=== PATIENT | female | born 1985 | race Caucasian/White ===

== ENCOUNTER 2020-01-02 08:20 | Inpatient (IN) ==
[2020-01-02 11:46] LABS: Amphetamines+Metham, Urine Neg (Neg); Barbiturates, Urine Neg (Neg); Benzodiazepine, Urine Neg (Neg); Cocaine, Urine Neg (Neg); MDMA (Ecstacy), Urine Neg (Neg); Methadone, Urine Neg (Neg); Opiate, Urine Neg (Neg); Phencyclidine, Urine Neg (Neg)
[2020-01-02] MEDS ORDERED: OXYTOCIN 30 UNITS/500 ML BAG IV PRN ×2 (12:35)
[2020-01-02] MEDS: LACTATED RINGER'S 1,000 ML IV PRN ×3 (12:54→20:33)
[2020-01-02 13:03] LABS: Hematocrit (blood only) 29.5 % (37-47); Hemoglobin 9.9 g/dL (12.0-16.0); Mean Corpuscular Hemoglobin 27.1 pg (25-34); Mean Corpuscular Volume 80.8 fL (80-100); Mean Platelet Volume 9.8 fL (7.4-10.4); Platelet Count 188 K/uL (130-400); RDW Coefficient of Variation 14.6 % (11.5-14.5); RDW Standard Deviation 42.7 fL (36.4-46.3); Red Blood Count 3.65 M/uL (4.2-5.4); White Blood Count 10.66 K/uL (4.8-10.8)
[2020-01-02 13:07] LABS: Mean Corpuscular Hgb Conc 33.6 g/dL (32-36)
[2020-01-02] MEDS ORDERED: ePHEDrine sulfate 50 MG/ML AMP ONE (16:09)
[2020-01-02] MEDS ORDERED: BUPIVACAINE 0.25% 30 ML VIAL ONE ×2 (16:10→23:30)
[2020-01-02] MEDS ORDERED: fentaNYL 2MCG/ML ROPIV 1.25MG/ML 100 ML BAG EPI ONE (16:10)
[2020-01-02] MEDS ORDERED: fentaNYL citrate 100 MCG/2 ML VIAL ONE ×2 (16:10→23:30)
--- NOTE | 2020-01-02 16:11 | History & Physical Report ---
Date of Service January 02, 2020 Assessment & Plan (1) 41 weeks gestation of : Long discussion about her situation. Cannot run pitocin if cannot monitor baby or contractions. Discussed could stop and wait a couple of days and try again--discussed the risks associated with waiting. Discussed the need for positioning for contractions and that might make her very uncomfortable. Discussed placement of internal monitors so can know for sure about contractions and monitoring the baby directly from the baby. Could give epidural to help with comfort and positioning. Discussed that will not be able to get up and move around. Discussed if she did not want to do any of this, could move directly to primary c/s. She does not want c/s. OK with going ahead with epidural and then internal monitors. Fetus category one--150s with mod variability, accels to 160s, no decels. Admission and Anticipated Discharge Date Admission Date: January 02, 2020 History of Present Illness Chief Complaint: LATE ENTRY Primary Care Provider: NO PCP Patient is a 34yowf with iup at 41 1/7 weeks who presents to labor and delivery for induction. Patient had a urrutia placed last night. Was still in when she arrived at labor and delivery this am. Notes no vb/lof. +fm. Patient was evaluated by Dr. Toribio on admission and removed the bulb. She was 3/5/-2. Having a very difficult time monitoring this patient. Was started on pitocin for induction and not able to adequately monitor because of size. She is uncomfortable in any position where we are adequately able to monitor. She will not stay in one position. Pitocin is now off. Patient was a transfer of care at 20 weeks from [place]. Spent a month in [place] in the . Admitted to smoking MJ daily in the at that time and urine positive for MJ. Advised to d/c. Patient admits that she has yessica nued to smoke MJ. Patient has a hx of a probably dermoid cyst on her ovary that has been stable for some time. Baby had EFW of 68% on 12/20. Allergies Allergy/AdvReac Type Severity Reaction Status Date / Time No Known Allergies Allergy Verified 12/28/19 15:45 Home Medications Home Medications Medication Instructions Recorded Confirmed Type pediatric multivitamin no.28 1 tab PO DAILY 08/04/19 01/02/20 History fluticasone propionate 50 1 sprays INTNAS DAILY PRN 10/20/19 01/02/20 History mcg/actuation nasal spray,suspension Patient History Medical History (Updated 01/02/20 @ 16:21 by Maribeth Vila MD, FACOG) Anxiety Encounter for anatomic survey GERD (gastroesophageal reflux disease) Hx of ectopic left salpingectomy in 2018 Hx of varicella MRSA (methicillin resistant Staphylococcus aureus) 02/2019 MRSA positive in right leg "boil". Swab obtained 01/01/2020 - pending. 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 Results & Data ([facility]) Vital Signs (Past 12 Hours) Vital Signs Temp Pulse Resp BP 01/02/20 14:49 37.0 C 94 H 20 124/72 01/02/20 13:30 89 20 117/76 01/02/20 13:28 94 H 20 120/74 01/02/20 12:37 36.9 C 100 H 20 132/77 01/02/20 10:19 37.1 C 20 01/02/20 10:13 100 H 125/73 Code Status & VTE Plan VTE Prophylaxis Plan VTE Prophylaxis will be ordered: Yes Coding Level of Care Code None Diagnoses 41 weeks gestation of Z3A.41
--- NOTE | 2020-01-02 16:33 | Anesthesiology Consultation ---
Date of Service January 02, 2020 Assessment & Plan Chart Review Chart Review: Acceptable Risk for Surgery, Patient NOT seen in Pre Admission Testing and Acceptable Risk for Labor Epidural Consults Requested none ASA ASA3 Proposed Anesthesia Anesthesia Type: Labor Epidural and CSE Risk / Benefits Reviewed With: PT / POA / Parent / Guardian, Accepts Plan and Informed Consent Obtained Additional Comments: not covid tested History Height/Weight Height: 5 ft 3 in Weight: 125.645 kg Allergies Allergy/AdvReac Type Severity Reaction Status Date / Time No Known Allergies Allergy Verified 12/28/19 15:45 Medications Home Medications Medication Instructions Recorded Confirmed Last Taken pediatric multivitamin no.28 1 tab PO DAILY 08/04/19 01/02/20 01/01/20 fluticasone propionate 50 1 sprays INTNAS DAILY PRN 10/20/19 01/02/20 01/01/20 mcg/actuation nasal spray,suspension Active Medications Generic Name Dose Route Start Last Admin Trade Name Freq PRN Reason Stop Dose Admin Lactated Ringer's 1,000 mls @ 125 mls/hr 01/02/20 12:35 01/02/20 12:54 Lr IV 01/04/20 12:34 125 mls/hr .Q8H PRN Administration L&D Protocol Protocol Oxytocin 30 units in 500 mls @ 0 mls/hr 01/02/20 12:35 01/02/20 15:42 Pitocin IV 01/04/20 12:34 0 units/hr .Q0M PRN 0 mls/hr Labor Induction/Augmentation Titration Protocol 0 UNITS/HR NPO Date Last Intake of Fluids: 01/02/20 Time Last Intake of Fluids: 15:00 Date Last Intake of Solids: 01/02/20 Time Last Intake of Solids: 09:00 Past Medical History Medical History Anxiety Encounter for anatomic survey GERD (gastroesophageal reflux disease) Hx of ectopic left salpingectomy in 2019 Hx of varicella MRSA (methicillin resistant Staphylococcus aureus) 02/2019 MRSA positive in right leg "boil". Swab obtained 01/01/2020 - pending. Exercise / Class Metabolic Activity III < 4 Walking/Shop/Light housework Past Family History Family History Mother Cervical cancer COPD (chronic obstructive pulmonary disease) Father COPD (chronic obstructive pulmonary disease) Past Surgical History Surgical History History of salpingectomy left Past Anesthesia History No Hx of Anesthesia Complications and No Family Hx of Anesthesia Complications History of PONV No Hx of PONV and No Hx of Motion Sickness Social History Smoking Status: Never smoker Do You Dip or Chew Tobacco: No Hx Alcohol Use: No Hx Substance Use: Yes substance use type: marijuana Last Used Substance Other:: Smoked marijuana in last 2 weeks. Physical Exam Vital Signs Last Vital Signs Temp 37.0 C 01/02/20 14:49 Pulse 91 H 01/02/20 16:27 Resp 20 01/02/20 14:49 BP 115/72 01/02/20 16:18 Pulse Ox 100 01/02/20 16:27 Constitutional + morbidly obese ENMT Mouth: no dentition abnormality Thyromental Distance: < 3.5 Finger Breadths Mallampati Class: II Neck normal visual inspection and trachea midline; neck extension not limited Respiratory normal respiratory effort Auscultation: lungs clear to auscultation bilaterally Cardiovascular Rate/Rhythm: regular rate and regular rhythm Heart Sounds: no murmur Vessels: no carotid bruit Musculoskeletal Spine: lumbar spine normal to inspection; normal cervical ROM Neurologic moves all extremities Motor/Sensory: no sensory deficit Psychiatric Orientation: alert and oriented x 3 Testing Laboratory Results 01/02/20 12:45
[2020-01-02] MEDS ORDERED: NALBUPHINE HCL INJ 10 MG/ML AMP IV PRN (17:11)
[2020-01-02] MEDS ORDERED: PROMETHAZINE HCL 25 MG in SODIUM CHLORIDE 0.9% 50 ML IV PRN (17:11)
[2020-01-02] MEDS ORDERED: DiphenhydrAMINE HCL 50 MG/ML VIAL IV PRN (17:11)
[2020-01-02] MEDS ORDERED: ePHEDrine sulfate 50 MG/ML AMP IV PRN (17:11)
[2020-01-02] MEDS ORDERED: NALOXONE HCL 1 MG in SODIUM CHLORIDE 0.9% 1000ML 1,000 ML IV PRN (17:11)
[2020-01-02] MEDS ORDERED: fentaNYL 2MCG/ML ROPIV 1.25MG/ML 100 ML BAG EPI PRN (17:11)
[2020-01-02] MEDS ORDERED: NALOXONE HCL 0.4 MG/1 ML VIAL/CARP IV PRN (17:11)
[2020-01-02] MEDS ORDERED: ONDANSETRON INJ 2 MG/ML 2 ML VIAL IV PRN (17:11)
--- NOTE | 2020-01-02 18:09 | Obstetrical Progress Note ---
Date of Service January 02, 2020 Assessment & Plan (1) 41 weeks gestation of : epiduralized and internalized. Will restart pitocin. Fetus category one. Admission and Anticipated Discharge Date Admission Date: January 02, 2020 Subjective comfortable after epidural Review of Systems Review of Systems: All systems reviewed & are unremarkable except as noted in HPI & below Physical Exam Constitutional: WD/WN, vitals as above Psychiatric: A+Ox3, euthymic affect Genitourinary: cx--4/80/-2 arom--clear toco--rare efm--150s with mod variability, accels to 160s Results & Data ([facility]) Vital Signs (Past 12 Hours) Vital Signs Temp Pulse Resp BP Pulse Ox 01/02/20 18:04 120 H 99 01/02/20 17:59 106 H 100 01/02/20 17:54 91 H 120/66 98 01/02/20 17:49 93 H 98 01/02/20 17:44 88 100 01/02/20 17:39 100 H 99 01/02/20 17:36 89 18 123/59 L 01/02/20 17:34 112 H 100 01/02/20 17:31 94 H 18 134/71 01/02/20 17:29 102 H 100 01/02/20 17:26 100 H 18 128/68 01/02/20 17:24 92 H 99 01/02/20 17:21 99 H 18 122/66 01/02/20 17:19 89 98 01/02/20 17:15 115 H 18 120/59 L 01/02/20 17:14 114 H 100 01/02/20 17:13 109 H 18 123/60 01/02/20 17:11 100 H 120/65 01/02/20 17:09 98 H 18 132/58 L 100 01/02/20 17:07 105 H 129/66 01/02/20 17:05 94 H 18 131/62 01/02/20 17:04 104 H 99 01/02/20 17:03 101 H 18 126/63 01/02/20 17:01 96 H 128/67 01/02/20 16:59 91 H 16 130/76 99 01/02/20 16:54 101 H 100 01/02/20 16:49 119 H 99 01/02/20 16:44 113 H 98 01/02/20 16:39 93 H 100 01/02/20 16:34 94 H 100 01/02/20 16:27 91 H 100 01/02/20 16:22 90 99 01/02/20 16:18 91 H 18 115/72 01/02/20 16:17 91 H 99 01/02/20 16:12 91 H 98 01/02/20 16:07 98 H 99 01/02/20 14:49 37.0 C 94 H 20 124/72 01/02/20 13:30 89 20 117/76 01/02/20 13:28 94 H 20 120/74 01/02/20 12:37 36.9 C 100 H 20 132/77 01/02/20 10:19 37.1 C 20 01/02/20 10:13 100 H 125/73 PG Care Time/CCT Total # of Minutes Spent Total Time Spent with Patient: Total time spent is greater than 50% in coordination of care (as documented) at patient's floor/unit and/or counseling patient: Coding Level of Care Code None Diagnoses 41 weeks gestation of Z3A.41
[2020-01-02] MEDS: ACETAMINOPHEN 325 MG TAB PO PRN (21:24)
[2020-01-02] MEDS ORDERED: Nursing to Pharmacy Communication SCH (22:15)
--- NOTE | 2020-01-02 23:18 | Communication Note ---
Date of Service: January 02, 2020 At 2315,pt. epidural cath. was bolused w/ 12 ml 0.17% bupivacaine + 100 mcgs fentanyl; incremental aspiration and injection, neg. for blood or CSF; vital s igns stable
[2020-01-02] MEDS ORDERED: fentaNYL citrate 100 MCG/2 ML VIAL IV STA (23:35)
[2020-01-02] MEDS ORDERED: BUPIVACAINE 0.25% 30 ML VIAL INFIL SCH (23:45)
[2020-01-03] MEDS ORDERED: BUPIVACAINE 0.25% 30 ML VIAL INJ ONE
[2020-01-03] MEDS ORDERED: Nursing to Pharmacy Communication SCH (00:30)
--- NOTE | 2020-01-03 02:15 | Labor Progress Brief Note ---
Date of Service January 03, 2020 Subjective comfortable Assessment & Plan (1) 41 weeks gestation of : Will allow to labor down for one hour and then push. Fetus category two but very reassuring. Anticipate . Admission and Anticipated Discharge Date Admission Date: January 02, 2020 Physical Exam Constitutional: WD/WN, vitals as above Psychiatric: A+Ox3, euthymic affect Genitourinary: cx--c/c/0 toco--q3-4, pit at 21 efm--150s with mod variability, variables with some contractions. Results & Data ([facility]) Vital Signs (Past 12 Hours) Vital Signs Temp Pulse Resp BP Pulse Ox 01/03/20 02:09 87 98 01/03/20 02:04 86 99 01/03/20 01:59 81 97 01/03/20 01:54 82 97 01/03/20 01:49 84 98 01/03/20 01:44 84 97 01/03/20 01:39 86 98 01/03/20 01:34 97 H 99 01/03/20 01:32 90 110/56 L 01/03/20 01:29 99 H 98 01/03/20 01:24 94 H 100 01/03/20 01:19 83 97 01/03/20 01:17 82 97/54 L 01/03/20 01:14 81 97 01/03/20 01:11 36.7 C 01/03/20 01:09 97 H 99 01/03/20 01:04 83 97 01/03/20 01:01 86 108/51 L 01/03/20 00:59 88 97 01/03/20 00:54 81 98 01/03/20 00:49 83 98 01/03/20 00:47 82 103/52 L 01/03/20 00:44 84 98 01/03/20 00:39 85 97 01/03/20 00:34 87 97 01/03/20 00:32 83 102/54 L 01/03/20 00:29 87 98 01/03/20 00:24 91 H 98 01/03/20 00:19 85 97 01/03/20 00:15 91 H 96/51 L 01/03/20 00:14 92 H 99 01/03/20 00:12 90 97/52 L 01/03/20 00:09 86 92/55 L 97 01/03/20 00:06 91 H 95/54 L 01/03/20 00:04 87 96 01/03/20 00:03 86 91/55 L 01/03/20 00:00 93 H 98/59 L 01/02/20 23:59 90 98 01/02/20 23:57 87 96/53 L 01/02/20 23:54 88 101/58 L 97 01/02/20 23:51 86 98/56 L 01/02/20 23:49 96 H 98 01/02/20 23:48 90 102/59 L 01/02/20 23:45 92 H 102/55 L 01/02/20 23:44 90 97 01/02/20 23:42 93 H 98/57 L 01/02/20 23:39 87 99/58 L 97 01/02/20 23:36 91 H 97/56 L 01/02/20 23:34 86 97 01/02/20 23:33 90 96/54 L 01/02/20 23:30 86 99/55 L 01/02/20 23:29 87 98 01/02/20 23:28 86 95/55 L 01/02/20 23:24 91 H 105/60 98 01/02/20 23:21 88 104/56 L 01/02/20 23:19 97 H 99 01/02/20 23:15 90 113/58 L 01/02/20 23:14 89 99 01/02/20 23:10 86 113/60 01/02/20 23:09 87 98 01/02/20 23:04 92 H 98 01/02/20 23:00 37.2 C 18 01/02/20 22:59 93 H 98 01/02/20 22:55 96 H 112/60 01/02/20 22:54 101 H 99 01/02/20 22:49 85 98 01/02/20 22:44 91 H 99 01/02/20 22:40 81 110/57 L 01/02/20 22:39 84 98 01/02/20 22:34 85 98 01/02/20 22:29 86 99 01/02/20 22:25 84 112/60 01/02/20 22:24 90 99 01/02/20 22:19 85 98 01/02/20 22:14 83 98 01/02/20 22:10 89 111/57 L 01/02/20 22:09 88 98 01/02/20 22:04 81 98 01/02/20 21:59 87 99 01/02/20 21:56 81 111/55 L 01/02/20 21:54 82 98 01/02/20 21:49 89 99 01/02/20 21:44 87 98 01/02/20 21:42 82 97/50 L 01/02/20 21:39 85 98 01/02/20 21:34 95 H 100 01/02/20 21:29 87 98 01/02/20 21:24 88 121/72 98 01/02/20 21:19 87 98 01/02/20 21:15 36.8 C 18 01/02/20 21:14 95 H 99 01/02/20 21:09 89 99 01/02/20 21:04 88 98 01/02/20 20:59 87 99 01/02/20 20:54 82 119/58 L 98 01/02/20 20:49 90 99 01/02/20 20:44 82 99 01/02/20 20:41 85 125/63 01/02/20 20:39 101 H 98 01/02/20 20:34 100 H 98 01/02/20 20:29 85 98 01/02/20 20:24 83 115/56 L 98 01/02/20 20:19 82 97 01/02/20 20:14 81 97 01/02/20 20:09 85 113/58 L 98 01/02/20 20:04 84 98 01/02/20 19:59 83 98 01/02/20 19:54 82 112/56 L 99 01/02/20 19:49 81 99 01/02/20 19:44 80 99 01/02/20 19:39 87 111/57 L 98 01/02/20 19:34 82 99 01/02/20 19:29 85 99 01/02/20 19:24 83 120/63 99 01/02/20 19:19 84 100 01/02/20 19:18 86 94 01/02/20 19:14 93 H 100 01/02/20 19:09 83 119/61 99 01/02/20 19:04 94 H 98 01/02/20 19:00 36.8 C 18 01/02/20 18:59 88 98 01/02/20 18:55 83 115/64 01/02/20 18:54 81 99 01/02/20 18:49 82 99 01/02/20 18:44 87 99 01/02/20 18:39 84 118/59 L 98 01/02/20 18:37 86 119/58 L 01/02/20 18:34 86 98 01/02/20 18:29 85 99 01/02/20 18:24 94 H 99 01/02/20 18:19 85 99 01/02/20 18:14 95 H 99 01/02/20 18:09 96 H 124/63 100 01/02/20 18:04 120 H 99 01/02/20 17:59 106 H 100 01/02/20 17:54 91 H 120/66 98 01/02/20 17:49 93 H 98 01/02/20 17:44 88 100 01/02/20 17:39 100 H 99 01/02/20 17:36 89 18 123/59 L 01/02/20 17:34 112 H 100 01/02/20 17:31 94 H 18 134/71 01/02/20 17:29 102 H 100 01/02/20 17:26 100 H 18 128/68 01/02/20 17:24 92 H 99 01/02/20 17:21 99 H 18 122/66 01/02/20 17:19 89 98 01/02/20 17:15 115 H 18 120/59 L 01/02/20 17:14 114 H 100 01/02/20 17:13 109 H 18 123/60 01/02/20 17:11 100 H 120/65 01/02/20 17:09 98 H 18 132/58 L 100 01/02/20 17:07 105 H 129/66 01/02/20 17:05 94 H 18 131/62 01/02/20 17:04 104 H 99 01/02/20 17:03 101 H 18 126/63 01/02/20 17:01 96 H 128/67 01/02/20 16:59 91 H 16 130/76 99 01/02/20 16:54 101 H 100 01/02/20 16:49 119 H 99 01/02/20 16:44 113 H 98 01/02/20 16:39 93 H 100 01/02/20 16:34 94 H 100 01/02/20 16:27 91 H 100 01/02/20 16:22 90 99 01/02/20 16:18 91 H 18 115/72 01/02/20 16:17 91 H 99 01/02/20 16:12 91 H 98 01/02/20 16:07 98 H 99 01/02/20 14:49 37.0 C 94 H 20 124/72 Coding Level of Care Code None Diagnoses 41 weeks gestation of Z3A.41
[2020-01-03] MEDS: ACETAMINOPHEN 325 MG TAB PO PRN (02:20)
[2020-01-03] MEDS ORDERED: ACETAMINOPHEN 325 MG TAB PO PRN (03:06)
[2020-01-03] MEDS ORDERED: OXYCODONE/ACETAMINOPHEN 5mg/325mg TAB PO PRN (03:06)
--- NOTE | 2020-01-03 03:11 | Delivery Summary ---
Vaginal Delivery Summary Date of Service January 03, 2020 Vaginal Delivery Summary Pre-operative Diagnosis: at 41 weeks Post-operative Diagnosis: same Procedure: Nixon bulb placement epidural iupc/fse placement pitocin induction EBL: 300cc Anesthesia: epidural Procedure: The patient pushed for 2 contractions to deliver a viable female in deidra position. The rest of the was then delivered without difficulty. The baby was vigorous. The nose and mouth were bulb suctioned and the was placed in the maternal abdomen for drying and attention. Cord was clamped and cut at one minute of life. Cord blood and segment obtained. Placenta delivered spontaneous, intact with a three vessel cord. Cervix/sulci/rectum/perineum intact. Hemostasis obtained with dilute pitocin and fundal massage. Apgars were 8/9. Mother and baby doing well at the end of the delivery.
[2020-01-03] MEDS ORDERED: OXYTOCIN 30 UNITS/500 ML BAG IV PRN (05:43)
[2020-01-03] MEDS ORDERED: DIPHTHERIA/TETANUS/PERTUSSIS 0.5 ML SYR/VIAL IM ONE (05:43)
[2020-01-03] MEDS ORDERED: FLUTICASONE PROPIONATE NA SPR 16 GM BTL NAE PRN (05:43)
[2020-01-03] MEDS ORDERED: SUPERCREAM 0.870% 15 GM JAR EXT PRN (05:43)
[2020-01-03] MEDS ORDERED: bisacodyL 10 MG SUPP PR PRN (05:43)
[2020-01-03] MEDS ORDERED: HYDROCORTISONE ACETATE 25 MG SUPP PR PRN (05:43)
[2020-01-03] MEDS ORDERED: BENZOCAINE 20% AER SPR 82.5 GM CAN EXT PRN (05:43)
--- NOTE | 2020-01-03 07:12 | Anesthesia Procedure Note ---
Date of Service January 03, 2020 Anesthesia Post Epidural Note Vital Signs Vital Signs: Temp Pulse Resp BP Pulse Ox 36.8 C 88 18 127/84 98 01/03/20 05:30 01/03/20 05:30 01/03/20 05:30 01/03/20 05:30 01/03/20 02:54 Notes Mental Status: alert / awake / arousable and participated in evaluation Patient Amnestic to Procedure: Yes Nausea / Vomiting: adequately controlled Pain: adequately controlled Airway Patency, RR, SpO2: stable & adequate BP & HR: stable & adequate Hydration State: stable & adequate Anesthetic Complications: no major complications apparent and Pt Satisfied with anesthetic care
[2020-01-03] MEDS: PRENATAL VITAMIN 1 TAB PO SCH (07:39)
[2020-01-03] MEDS: DOCUSATE SODIUM 100 MG CAP PO SCH ×2 (07:40→20:08)
[2020-01-03] MEDS: IBUPROFEN 600 MG TAB PO PRN ×2 (10:50→20:06)
[2020-01-04 05:58] LABS: Hematocrit (blood only) 28.6 % (37-47); Hemoglobin 9.4 g/dL (12.0-16.0)
--- NOTE | 2020-01-04 07:31 | Obstetrical Progress Note ---
Date of Service January 04, 2020 Assessment & Plan (1) examination following vaginal delivery: stable, routine care. desires d/c home, instructions reviewed. needs rhogam and she is aware. f/u 6 wk pp check. Day #:: 1 Subjective Ambulation: ambulating normally Voiding: no voiding problems Diet Tolerance:: regular diet Lochia:: Small Feeding Type:: bottle feeding denies pain issues. says she is but not regularly getting baby to nipple. had baby in nursery last night with formula so she could sleep. aware of need for rhogam. not masking but asked to wear mask when i examine her and she complied. Physical Exam Constitutional WD/WN, vitals as above Respiratory normal respiratory effort, lungs clear to auscultation Cardiovascular Rate/Rhythm: regular rate and regular rhythm Gastrointestinal (Abdomen) Percussion/Palpation: abdomen soft; abdomen nontender ff 2 down obese, nt Musculoskeletal nt calves Psychiatric A+Ox3, euthymic affect Results & Data ([facility]) Vital Signs (Past 12 Hours) Vital Signs Temp Pulse Resp BP 01/04/20 04:50 98.6 F 84 18 116/80 01/03/20 23:50 97.5 F L 81 18 98/66 L 01/03/20 21:20 98.8 F 85 18 119/81
[2020-01-04 07:39] LABS: Marijuana Quant, GCMS Urine 66 ng/mL (<5)
[2020-01-04] MEDS: IBUPROFEN 600 MG TAB PO PRN (08:46)
[2020-01-04] MEDS: PRENATAL VITAMIN 1 TAB PO SCH (08:46)
[2020-01-04] MEDS: DOCUSATE SODIUM 100 MG CAP PO SCH (08:46)
[2020-01-04] MEDS ORDERED: bisacodyL 5 MG TABEC PO SCH (20:00)
== END 2020-01-04 13:45 | disposition home or self-care (01) | DRG 806 ==
LOC: 4S1 09:54 → 4S2 01-03 05:20